=== PATIENT | female | born 1985 | race Hispanic/Latino ===

== ENCOUNTER → 2018-03-29 | Day surgery (SDC) | payer BC ==
[2018-03-27 14:58] LABS: BASOPHILS % 0.6 % (0.0-1.0); HEMATOCRIT 31.2 % (34.2-44.1); HEMOGLOBIN 9.7 g/dL (12.0-16.0); LYMPHOCYTES # (AUTO) 2.1 (1.0-3.2); LYMPHOCYTES % 32.7 % (18.0-39.1); MEAN CORPUSCULAR HEMOGLOBIN 23.6 pg (28-32); MEAN CORPUSCULAR HGB CONC 31.1 g/dL (31-35); MEAN CORPUSCULAR VOLUME 75.9 fL (81-99); MONOCYTES # (AUTO) 0.7 (0.2-0.8); NEUTROPHILS # (AUTO) 3.6 (2.1-6.9); NEUTROPHILS % 55.4 % (38.7-80.0); PLATELET COUNT 191 x10e3/uL (140-360); RED BLOOD COUNT 4.11 x10e6/uL (3.6-5.1); RED CELL DISTRIBUTION WIDTH 15.8 % (11.7-14.4)
[~2018-03-29] MED LIST: DEXAMETHASONE SOD PHOS INJ 4 MG/ML VIAL ONE; FENTANYL CITRATE/PF 100MCG/2 ML INJ ONE; LIDOCAINE HCL 2% LOCAL INJ 5 ML SDV VIAL INJ ONE; METRONIDAZOLE 500MG/NS 100ML 100 ML IV ONE; MIDAZOLAM HCL 2 MG/2 ML VIAL ONE; MULTIVITAMINS1 EAC7 PO; ONDANSETRON HCL INJ 2 MG/ML VIAL ONE; PROPOFOL IV EMULSION 10 MG/ML 20 ML VIAL ONE; SEVOFLURANE INHAL SOLN 250 ML PEN BTL ONE; SILVER NITRATE SWABS ONE
--- NOTE | 2018-04-11 13:15 | Operative Report ---
DATE OF PROCEDURE: March 29, 2018 PREOPERATIVE DIAGNOSES 1. Abnormal uterine bleeding. 2. Suspected uterine polyp. POSTOPERATIVE DIAGNOSE 1. Abnormal uterine bleeding. 2. Endometrial polyp. PROCEDURES PERFORMED 1. Hysteroscopy. 2. Dilatation and curettage. 3. Hysteroscopic polypectomy. ANESTHESIA: General. ESTIMATED BLOOD LOSS: Minimal. COMPLICATIONS: None. FINDINGS: A small anteverted uterus with hysteroscopic findings of an endometrial polyp within the uterine cavity. SPECIMENS: Included endometrial curettings with polyp. INDICATIONS: The patient is a 32-year-old, 1 para 1, who presented with abnormal uterine bleeding and was noted to have thickened endometrium on ultrasound suggestive of endometrial polyp. PROCEDURE NOTE: The risks, benefits and alternatives of the procedure were discussed with the patient and consent was obtained. The patient was taken to the operating room where general anesthesia was obtained without difficulty. The patient was then prepped and draped in typical sterile fashion in the dorsal lithotomy position in [facility]. A time out was done. The patient's bladder was then drained with a straight catheter prior to the procedure. A weighted speculum was then placed in the vagina and the anterior lip of the cervix was grasped with a single-tooth tenaculum. The cervix was then sequentially dilated with the Hegar dilators and the TRUCLEAR hysteroscope was inserted and advanced the uterine fundus with normal saline as the distention medium. The uterine cavity was explored with the findings noted above. The TRUCLEAR device was then used to morcellate and remove the endometrial tissue and polyp under direct visualization. A sharp curettage was then performed and all curettings were sent for pathology. A survey of the uterine cavity then revealed a normal-appearing and intact cavity. All instruments were then removed from the patient's vagina. The tenaculum sites in the uterus were noted to be hemostatic. The patient was awakened and brought to the recovery room in stable condition. All sponge, lap, needle and instrument counts were correct times 2. Job#: [id number]
== END | disposition home or self-care (01) ==
LOC: OR 10:42
PROVIDERS: ATTEND Obstetrics & Gynecology Obstetrics
DX: N84.0 Polyp of corpus uteri (principal); F41.9 Anxiety disorder, unspecified; Z01.812 Encounter for preprocedural laboratory examination
CPT/HCPCS: 36415; 58558; 81025; 84702; 85025; 88304; J1100; J2001; J2250; J2405